=== PATIENT | female | born 1980 | race Caucasian/White ===

== ENCOUNTER 2024-04-22 13:03 | Day surgery (SDC) | payer OTHER, SELFPAY ==
--- NOTE | 2024-04-22 | PATH_ITS ---
[facility] Accession Number: [id number] No. of containers..02 Tissue . 01 Material submitted: . PART A: colon - RANDOM COLON BIOPSIES X 2 PART B: rectum - RECTAL POLYP . 01 Diagnosis: Part A: RANDOM COLON BIOPSIES X 2: Colonic mucosa with no diagnostic alterations. No active inflammation, granulomas, dysplasia, or malignancy identified. No evidence of colitis. . Part B: RECTAL POLYP: Tubular adenoma. [facility] 04/29/20241423 Local . 01 Electronically signed: . Edgardo Ventura MD, Pathologist NPI- [id number] . 01 Gross description: . A. Received in formalin with two patient identifiers and random colon biopsy, is a single garnica soft fragment, 0.5 cm in greatest dimension. Submitted entirely in A1. . B. Received in formalin with two patient identifiers and rectal polyp, is a single garnica soft tissue fragment, 0.3 cm in greatest dimension. Submitted entirely in B1. ([id number]) /MRV 04/29/20241423 Local . 01 Pathologist provided ICD-10: D12.8, K52.9 . 01 CPT . 964044, [id number] Specimen Comment: A courtesy copy of this report has been sent to [phone] Performed at: [address] [facility] [address], [place], [place] [id number] MD Edgardo Ventura MD Phone: [phone]
[2024-04-22 13:28] VITALS: BP 111/75; PULSE 76; RESP 16; TEMP 37.6; O2SAT 100
--- NOTE | 2024-04-22 13:31 | P.HP_ITS ---
History of Present Illness History of Present Illness Date Patient Seen: 04/22/24 Time Patient Seen: 13:31 Chief complaint: SDC Narrative: 43-year-old female recently seen in GI clinic reporting issues with chronically loose stools average between 2 and 4 per day. Nocturnal symptoms that wake her at night. This is associated with cramping abdominal pain. Diagnostic colonoscopy is requested today. No other changes with respect to the recent clinic note. [facility] Social History Smoking Status: Current some day smoker Meds Home Medications and Allergies Allergies Allergy/AdvReac Type Severity Reaction Status Date / Time No Known Drug Allergies Allergy Verified 04/22/24 13:19 Review of Systems Review of Systems ROS: Yes All systems reviewed with the patient and are negative except as otherwise documented Exam Const General: cooperative HENMT Head: normal to inspection Eyes General: appearance normal, both eyes and all related structures Neck Neck: normal visual inspection Chest Chest: normal inspection of the chest Resp Effort & Inspection: normal respiratory effort Cardio Rate: regular rate GI Inspection: normal to inspection Skin General: no rashes or lesions noted Neuro General: patient alert and patient awake Extrem General: normal to inspection and no pedal edema Psych Appearance: grossly normal Assessment & Plan Assessment & Plan narrative: 43-year-old female with chronic diarrhea and intermittent abdominal pain. Diagnostic colonoscopy is pursued today.
--- NOTE | 2024-04-22 13:33 | PM.PREOP ---
Pre-operative Note Interval Note History & Physical reviewed/Exam performed by Physician: Yes Changes to H&P: No ASA Class (for procedural sedation): I
--- NOTE | 2024-04-22 15:25 | PM.OP.COLON ---
Operative Date/Time/Diagnoses Date of procedure: 04/22/24 Time of procedure: 15:25 Pre-op diagnosis: Chronic diarrhea and intermittent abdominal pain Post-op diagnosis: same Procedure & Clinicians Study performed: Colonoscopy with biopsies and cold forceps polypectomy Same procedure as scheduled: Yes Indications: Chronic diarrhea and intermittent abdominal pain Surgeon: Arie Lozoya Procedure Notes SCOAP/Timeout: Done Procedure in detail: After the risks and benefits were explained, written and verbal informed consent was obtained. The patient was brought into the procedure room and placed into the left lateral decubitus position. Please see anesthesia notes for sedation details. Digital rectal examination was accomplished. The scope was introduced into the patient and advanced under direct visualization to the cecum as identified by the appendiceal orifice and ileocecal valve. The scope was slowly withdrawn to carefully examine the mucosa for any defects or lesions. Comprehensive imaging was accomplished throughout the rectum including the dentate line. The colon was decompressed, the scope was then removed from the patient who tolerated the procedure well. Pediatric colonoscope Bowel prep adequate Scope withdrawal time: 13 minutes Sedation minutes: 23 Complications: none Impression: There was no evidence of proctitis nor colitis throughout. Random colon biopsies were taken for exclusion of microscopic colitis. The terminal ileum appeared normal. There was a diminutive 3 mm polyp in the rectum addressed with cold forceps. No additional pathology was appreciated throughout. Endoscopic diagnosis 1. Diminutive rectal polyp 2. Otherwise visually normal colonoscopy and terminal ileoscopy Post-procedure Plan for aftercare: 1. Await histology. 2. Timing of any surveillance colonoscopy will be contingent on pathology results. 3. Follow up GI clinic Disposition: PACU
[2024-04-22 15:29] VITALS: BP 116/66; PULSE 81; RESP 16; TEMP 36.7; O2SAT 99
[2024-04-22] MEDS: LACTATED RINGERS 1,000 ML 150 ML IV (15:33)
[2024-04-22 15:34] VITALS: BP 113/79; PULSE 85; RESP 12; O2SAT 99
[2024-04-22 15:39] VITALS: BP 115/76; PULSE 66; RESP 14; TEMP 36.6; O2SAT 100
[2024-04-22 15:42] VITALS: BP 109/79; PULSE 65; RESP 20; O2SAT 100
== END 2024-04-22 15:55 | disposition home or self-care (01) ==
PROVIDERS: Referring Provider Internal Medicine Gastroenterology; Visit Provider Internal Medicine Gastroenterology
PROC: 0DJD8ZZ Inspection of Lower Intestinal Tract, Via Natural or Artificial Opening Endoscopic (ICD-10-PCS; CPT 45378; principal; 2024-04-22 14:00)
DX: K52.9 Noninfective gastroenteritis and colitis, unspecified (principal); D12.8 Benign neoplasm of rectum
CPT/HCPCS: 45380; J2704